=== PATIENT | male | born 1975 | race Caucasian/White ===

== ENCOUNTER 2017-05-12 21:27 | Emergency (ER) | payer OTHER, MEDICAID ==
[~2017-05-12] VITALS: Ht 172.7 cm; Wt 77.6 kg
--- NOTE | 2017-05-12 21:39 | Emergency Room Report ---
History of Present Illness Time Seen by 2130 Presenting Problem in Triage Pt arrived:Walked Presenting Problem:C/O PAINFUL LEFT FOOT AFTER A WALL FELL ON IT ON 05/11/17. LEFT FOOT BRUISED AND PAINFUL Onset of symptoms date/time:05/11/17/ or onset unknown for:MEDICAL HX UNKNOWN Treatment Prior to Arrival: [employer] Provided by: Sepsis Risk Assessment: Temp: 98.4 B/P: 154/99 MAP: 117 Pulse: 63 Resp: 20 Recent fever? N Clinical Suspician of Infection? N Mental Status: 1 - Regular (Normal Baseline) Sepsis Risk:Low Sepsis Risk Have you (or family members/close friends) recently traveled outside the [place]? N If Yes, where/when: Have you had exposure to infectious disease within the past month? N TB? Other? Specify: Source patient, RN notes reviewed, family, old records Exam Limitations no limitations Comment wall dropped on lt foot yesterday with persistant pain and ecchymosis and bruising with pain with wt bearing-and inc sx over the last 2 days- workman comp injury Cardiac Chest Pain Chest pain indicative of cardiac No Timing/Duration this evening Severity moderate ALLERGIES Coded Allergies: No Known Allergies (04/21/16) Home Medications Active Scripts Azithromycin (Zithromax) 250 MG PO DAILY #4 TAB Prov: 02/14/17 Benzonatate (Tessalon Perle) 100 MG PO TID #15 SGL Prov: 02/14/17 Naproxen (Naprosyn 500MG Tab) 500 MG PO BID #10 TAB Prov: 02/14/17 Erythromycin (Erythromycin Ophth Oint 3.5GM Tube) 1 GM OP Q4H #1 OIN Ref 2 Prov: 02/13/17 Reported Medications Lisinopril & Hctz (Lisinopril-Hctz 10-12.5 MG Tab) 1 TAB FT DAILY Atorvastatin Calcium 10 MG PO DAILY #30 Levothyroxine Sodium (Levothyroxine 0.025MG) 0.025 MG PO DAILY #30 CYANOCOBALAMIN (VITAMIN B-12) (Vitamin B-12) 50 MCG PO DAILY History Medical History General CAD? No Angina: No [place]: No Hypertension? Yes Hyperlipidemia? Yes CHF? No DVT? No PE? No COPD? No Asthma? No Anemia? No GERD? No Gastric ulcers? No GI Bleed? No Hernia? No Thyroid Problems? Yes Hypothyroidism? Yes CVA? No Seizures? No Diabetes? No Renal Insuffiency? No End Stage Renal Disease? No UTI? No Stones? No BPH? No GB Disease: No Nephritic Syndrome? No Asplenia? No Hepatitis? No Sickle Cell Disease? No Arthritis? No Migraines? No Cataracts? No Glaucoma? No MRSA? No HIV? No TB? No Anxiety? No Depression? No Cancer? No More? No Immunization Hx DT/Tetanus 1-4 Years Ago Surgical Hx Previous Surgery?Y KIDNEY STONE REMOVED Social History Smoking Hx Smoker: Never Smoker Tobacco: No Alcohol Alcohol: No Drugs none Review of Systems All Other Systems Reviewed and Negative Constitutional denies fever Eyes denies drainage ENT denies: ear discharge, epistaxis, throat pain. Respiratory denies cough, denies shortness of breath, denies wheezing Cardiovascular denies chest pain, denies syncope Gastrointestinal denies abdominal pain, denies diarrhea, denies vomiting Genitourinary denies: dysuria, frequency, hesitancy, hematuria. Musculoskeletal denies back pain, joint pain, joint swelling, denies neck pain Skin denies rash Psychiatric/Neurological denies headache, denies seizure Physical Exam Vital Signs Vital Signs Date Time Temp Pulse Resp B/P Pulse O2 O2 Flow FiO2 Ox Delivery Rate 05/12 2132 98.4 63 20 154/99 97 - WBC >12,000 or <4,000 or 10% bands? 2 or more SIRS Criteria Met? B/P:154/99 MAP:117 Creatinine >2.0? UA output<0.5ml/kg/hr for 2 hrs? Platelet count >100,000? Lactate >2.0mmol/1? INR >1.2 or PTT > than 60 sec? Evidence of Organ Dysfunction? Provider documented clinical suspician of infection? N Sepsis Criteria Count: 1 Sepsis Risk: Low Sepsis Risk General Appearance no apparent distress Eye Exam - bilateral eye PERRL, bilateral eye EOMI Ear, Nose, Throat normal ENT inspection Neck supple Respiratory Status No: respiratory distress. 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 No Results/Orders Orders Procedure Date/time Status DIET-NOTHING BY MOUTH 05/[address] EXT.LOWER-LT-W/O CONTRAST 05/[address] SCAN REQ 05/12 2140 Complete FOOT-LT-3 VIEWS 05/12 2138 Active XRAY/CT/US XRAY/CT/US 1 XRAY foot XR interpretation by reviewed by me Xray Results no fracture seen XRAY/CT/US [address] interpretation by discussed w/radiologist Time results known: 2237 CT Results no fracture seen Departure Departure Time of Disposition 2236 Disposition DC Home or Self Care(routine) Clinical Impression Primary Impression: Crush injury Condition STABLE Referrals ANNE GRULLON DPM Patient Instructions DI for Crush Injury Additional Instructions see podiatry and use nsaif and wt bearing as cordell Discharge Counseling Counseled pt/family regarding diagnosis, test results, medications/RX, follow up needs ED Critical Care Critical Care No Comments workman comp forms completed at 2252
[2017-05-12 23:03] VITALS: BP 150/94
--- NOTE | 2017-05-13 05:09 | RADIOLOGY REPORT PS360 ---
FOOT-LT-3 VIEWS HISTORY: Pain following injury acute injury ORDERING PHYSICIAN: Dagmar Byrnes MD PATIENT AGE: 41 years COMPARISON: None FINDINGS: No fracture or dislocation. No lytic or blastic change. There is normal mineralization.. The joint spaces are well-preserved. No significant degenerative/arthritic changes. No erosive changes evident. IMPRESSION: Negative left foot, no acute finding
--- NOTE | 2017-05-13 05:12 | RADIOLOGY REPORT PS360 ---
CT EXT.LOWER-LT-W/O CONTRAST INDICATION: Pain and swelling and bruising following injury LEFT FOOT INJURY ORDERING PHYSICIAN: Dagmar Byrnes MD PATIENT AGE: 41 years COMPARISON: Radiograph of the same day TECHNIQUE: Axial images are obtained without contrast. Sagittal and coronal reformatted images are reviewed as well. FINDINGS: No fracture or dislocation. No bony or joint abnormalities. Mild dorsal soft tissue swelling. No abnormal fluid collections. No radiopaque foreign body IMPRESSION: Mild soft tissue swelling, No acute fracture or dislocation
== END 2017-05-12 23:03 | disposition home or self-care (01) ==
LOC: ER 21:27
DX: S97.82XA Crushing injury of left foot, initial encounter (principal); W23.1XXA Caught, crushed, jammed, or pinched between stationary objects, initial encounter; Y93.9 Activity, unspecified; Y92.9 Unspecified place or not applicable; Y99.0 Civilian activity done for income or pay; I10 Essential (primary) hypertension; E78.5 Hyperlipidemia, unspecified; E03.9 Hypothyroidism, unspecified; Z79.899 Other long term (current) drug therapy

== ENCOUNTER → 2017-07-23 | Outpatient (CLI) | payer MEDICAID ==
[~2017-07-23] MED LIST: ATORVASTATIN CA10 M1 PO; CIPRO 500MG TA500 MG PO; ERYTHROMYC3.5 GM/TUB OP; LEVOTHYROXIN0.025 M1 PO; LISINOPRIL/HCTZ1 TA3 FT; NAPROSYN500 M1 PO; NORCO 325 MG-51 TAB PO; PREDNISONE 20MG20 MG PO; TESSALON PERLE100 M1 PO; VITAMIN B1250 MCG PO; ZITHROMAX Z-PA250 M2 PO
[2017-07-23 06:40] LABS: HEMOGLOBIN 15.1 g/dL (14.1-18.0); LYMPH # 2.4 K/mm3 (0.7-4.5); LYMPH % 27.7 % (10-50)
[2017-07-23 08:40] LABS: BUN 15 mg/dL (7-18)
[2017-07-23 08:42] LABS: GFR (ESTIMATED) 66 ML/MIN (>60)
== END ==
LOC: LAB 06:21
PROVIDERS: Physician Assistant
DX: E78.5 Hyperlipidemia, unspecified (principal); E03.9 Hypothyroidism, unspecified